=== PATIENT | male | born 1990 | race Caucasian/White ===

== ENCOUNTER → 2019-07-17 | Outpatient (CLI) | payer OTHER | LOC: COL.VAS 13:15 | DX: I51.7 Cardiomegaly (principal) ==

== ENCOUNTER 2020-01-04 03:51 | Emergency (ER) | payer OTHER ==
[~2020-01-04] VITALS: Ht 182.9 cm; Wt 90.9 kg
[2020-01-04 03:52] VITALS: TEMP 98
[2020-01-04 04:17] LABS: BASO # 0.1 (0.0-0.2); BASO % 0.6 % (0.0-2.0); EOS # 0.8 (0.0-0.7); EOS % 10.1 % (0-4.0); GRAN # 3.2 (1.4-6.5); GRAN % 39.5 % (42.2-75.2); HEMATOCRIT 46.2 % (42.0-52.0); HEMOGLOBIN 16.7 g/dl (13.5-18.0); LYMPH # 3.3 (1.2-3.4); LYMPH % 39.6 % (20.0-51.0); MEAN CELL VOLUME 82 fl (80.0-100.0); MEAN CORPUSCULAR HEMOGLOBIN 30 pg (27.0-31.0); MEAN CORPUSCULAR HGB CONC 36 g/dl (33.0-37.0); MEAN PLATELET VOLUME 9.5 fl (7.4-10.4); MONO # 0.8 (0.1-0.6); PLATELET COUNT 223 K/mm3 (130-400); RED BLOOD COUNT 5.64 M/mm3 (4.20-5.60); REDCELL DISTRIBUTION WIDTH-CV 11.9 % (11.5-14.5)
[2020-01-04] MEDS ORDERED: CELEXA40 MG PO (04:18)
[2020-01-04] MEDS ORDERED: IBU800 M1 PO (04:18)
[2020-01-04 04:25] LABS: ALANINE AMINOTRANSFERASE 17 U/L (4-49); ALBUMIN 4.5 gm/dL (3.5-5.0); ALKALINE PHOSPHATASE 53 U/L (50-136); ANION GAP 8 mmol/L (7-16); AST,SGOT 24 U/L (15-37); BILIRUBIN,TOTAL 0.4 mg/dL (0.0-1.0); BLOOD UREA NITROGEN 14 mg/dL (9-20); CALCIUM 9.3 mg/dL (8.4-10.2); CARBON DIOXIDE 28 mmol/L (22-30); CHLORIDE 101 mmol/L (98-107); GLUCOSE 90 mg/dL (74-106); POTASSIUM 3.9 mmol/L (3.4-5.0); SODIUM 138 mmol/L (137-145); TOTAL PROTEIN 7.3 gm/dL (6.4-8.2)
[2020-01-04 04:27] LABS: C-REACTIVE PROTEIN < 0.5 mg/dL (0.0-0.9)
[2020-01-04 06:00] LABS: COLLECTION METHOD CLEAN CATCH
[2020-01-04 06:08] LABS: MUCOUS Present /lpf; PH 5 (5-8); SQUAMOUS EPITHELIAL None Seen /hpf; URINE APPEARANCE Clear; URINE BACTERIA None Seen /hpf; URINE BILIRUBIN Negative (NEGATIVE); URINE BLOOD Negative (NEGATIVE); URINE COLOR Yellow; URINE GLUCOSE Negative (NEGATIVE); URINE KETONE Negative (NEGATIVE); URINE LEUKOCYTE ESTERASE Negative (NEGATIVE); URINE NITRATE Negative (NEGATIVE); URINE PROTEIN(semi-quant) Negative (NEGATIVE); URINE RBC 0-2 /hpf; URINE UROBILINOGEN Negative (NEGATIVE)
[2020-01-04 06:29] VITALS: BP 128/79; PULSE 59
== END 2020-01-04 06:41 | disposition home or self-care (01) ==
LOC: COL.ER 03:51
PROVIDERS: Emergency Medicine
DX: N45.1 Epididymitis (principal)
CPT/HCPCS: J1885; J2060; J7030

== ENCOUNTER 2023-02-07 06:26 | Day surgery (SDC) | payer BC ==
[~2023-02-07] VITALS: Ht 182.9 cm; Wt 99.2 kg
[~2023-02-07 06:26] MED LIST: CELEXA40 MG PO; IBU800 M1 PO
[2023-02-07] MEDS ORDERED: ADDERALL20 MG PO (06:59)
[2023-02-07] MEDS ORDERED: CLARITIN 1010 MG/TAB PO (07:00)
[2023-02-07 08:11] VITALS: BP 138/88; PULSE 80; TEMP 97.1
[2023-02-07 08:35] VITALS: BP 120/77; PULSE 87; TEMP 97.7
--- NOTE | 2023-02-07 08:35 | NUR ---
The patient arrived back to [facility] from the endoscopy suite at this time. The patient appears drowsy but talking iwth the staff. The patient ambulated from the cart to the recliner in his room with the stand by assistance of two nurses and appeared to tolerate the activity well. Vital signs started post procedure. Agrees to try some apple juice and denies any further needs.
[2023-02-07 08:50] VITALS: BP 120/81; PULSE 72
--- NOTE | 2023-02-07 08:50 | NUR ---
Dr. Sanders has spoken with the patient and his regarding the findings of the procedure. The patient has finished his juice and appeared to tolerate it well. Discharge instructions were reviewed with the patient and his . They both verbalized understanding and have no questions for the nurse at this time. The patient's IV to his right hand was removed and a pressure dressing was applied to the site. The patient was instructed to get dressed and notify the staff when he is ready to be escorted out.
--- NOTE | 2023-02-07 09:00 | NUR ---
The patient was escorted out via wheelchair to a private vehicle by SIERRA Gregory. The patient's belongings and discharge paperwork were sent with him. The patient's is present to drive him home.
== END 2023-02-07 09:00 | disposition home or self-care (01) ==
LOC: SDCO 06:26
DX: Z12.11 Encounter for screening for malignant neoplasm of colon (principal); Z86.010 Personal history of colon polyps; Z86.79 Personal history of other diseases of the circulatory system
CPT/HCPCS: J2704; J7120

== ENCOUNTER 2023-10-01 23:04 | Emergency (ER) | payer BC ==
[~2023-10-01] VITALS: Ht 182.9 cm; Wt 89.5 kg
[~2023-10-01 23:04] MED LIST changes: +ADDERALL20 MG PO; +CLARITIN 1010 MG/TAB PO
[2023-10-01 23:08] VITALS: TEMP 98.2
[2023-10-02 00:12] VITALS: BP 126/77; PULSE 80
[2023-10-02] MEDS ORDERED: Home HYDROcodone/Acetaminophen 5/325 MG #4 TABS/PACK PO ONE (00:15)
== END 2023-10-02 00:12 | disposition home or self-care (01) ==
LOC: COL.ER 23:04
DX: M79.661 Pain in right lower leg (principal); Z98.890 Other specified postprocedural states
CPT/HCPCS: J1650

== ENCOUNTER → 2023-10-02 | Outpatient (CLI) | payer BC | LOC: COL.RAD 05:25 | DX: M79.604 Pain in right leg (principal) ==

== ENCOUNTER 2023-11-25 17:05 | Emergency (ER) | payer BC ==
[~2023-11-25] VITALS: Ht 182.9 cm; Wt 87.7 kg
[2023-11-25 17:12] VITALS: TEMP 98.2
[2023-11-25] MEDS ORDERED: Ketorolac 60 MG/2 ML VIAL IM ONE (17:45)
[2023-11-25] MEDS ORDERED: Cyclobenzaprine 10 MG TAB PO ONE (17:45)
[2023-11-25] MEDS ORDERED: FLEXERIL 1010 MG/TAB PO (18:26)
[2023-11-25] MEDS ORDERED: MOBIC 7.5MG7.5 MG PO (18:26)
[2023-11-25] MEDS ORDERED: Home Cyclobenzaprine 10 MG #2 TABS/PACK PO ONE (18:30)
[2023-11-25 18:32] VITALS: BP 112/78; PULSE 76
== END 2023-11-25 18:32 | disposition home or self-care (01) ==
LOC: COL.ER 17:05
DX: M62.830 Muscle spasm of back (principal)
CPT/HCPCS: J1885